=== PATIENT | male | born 2005 | race African-American/Black ===

== ENCOUNTER 2024-08-24 11:25 | Emergency (ER) | payer MEDICAID ==
[~2024-08-24] VITALS: Ht 177.8 cm; Wt 58.0 kg
[2024-08-24 11:28] VITALS: O2SAT 97
[2024-08-24 11:32] VITALS: BP 135/64; PULSE 86; RESP 16; TEMP 37.1; O2SAT 100
[2024-08-24 14:52] LABS: CHLORIDE 102 mEq/L (98-107); POTASSIUM 3.6 mEq/L (3.5-5.1); SODIUM 140 mEq/L (136-145)
[2024-08-24 14:53] LABS: CARBON DIOXIDE 28 mEq/L (21-32)
[2024-08-24 14:54] LABS: CALCIUM 10.1 mg/dL (8.7-10.4)
[2024-08-24 14:58] LABS: CREATININE 1.1 mg/dL (0.6-1.3); GLUCOSE 75 mg/dL (70-105); UREA NITROGEN BLOOD 7 mg/dL (9-23)
[2024-08-24 14:59] LABS: BASOPHILS % 0.7 % (0.0-2.0); EOSINOPHILS % 1.3 % (0.0-5.0); HEMATOCRIT. 47.4 % (42.0-52.0); HEMOGLOBIN. 15.7 g/dL (14.0-18.0); LYMPHOCYTES % 44.2 % (20.0-50.0); MEAN CORPUSCULAR HEMOGLOBIN 30.1 pg (28.0-32.0); MEAN CORPUSCULAR HGB CONC 33.1 g/dL (31.0-37.0); MEAN PLATELET VOLUME 8.9 fl (7.4-10.4); MONOCYTES % 5.2 % (2.0-8.0); NEUTROPHILS % 48.6 % (40.0-76.0); PLATELET 196 x1000/uL (130-400); RED BLOOD CELL COUNT 5.21 mill/uL (4.7-6.1); RED CELL DISTRIBUTION WIDTH 13.7 % (11.6-14.6); WHITE BLOOD COUNT 6.6 x1000/uL (4.5-11.0)
[2024-08-24] MEDS ORDERED: AMOX50SU15 MT (15:17)
[2024-08-24 16:11] LABS: INR 1.1; PROTHROMBIN TIME 11.7 sec (9.6-11.0)
== END 2024-08-24 15:30 | disposition home or self-care (01) ==
LOC: ER 11:25
DX: J02.9 Acute pharyngitis, unspecified (principal); Z79.899 Other long term (current) drug therapy
CPT/HCPCS: 36415; 80048; 85025; 99283